=== PATIENT | male | born 1925 | race Hispanic/Latino ===

== ENCOUNTER 2017-02-28 08:59 | Emergency (ER) | payer MEDICARE ==
--- NOTE | 2017-02-28 10:04 | RAD ---
PA AND LATERAL VIEWS CHEST: HISTORY: Cough. FINDINGS/IMPRESSION: The heart size is prominent. There is evidence of old granulomatous disease. A small right pleural effusion is seen. No lobar consolidation or kylah pleural edema is identified. POS: [facility]
== END 2017-02-28 09:45 | disposition home or self-care (01) ==
LOC: NAV ERS 08:59
DX: J90 Pleural effusion, not elsewhere classified (principal); R05 Cough; E78.5 Hyperlipidemia, unspecified; I10 Essential (primary) hypertension; Z86.73 Personal history of transient ischemic attack (TIA), and cerebral infarction without residual deficits; Z87.891 Personal history of nicotine dependence; Z79.899 Other long term (current) drug therapy
CPT/HCPCS: 71020

== ENCOUNTER 2017-03-07 03:51 | Emergency (ER) | payer MEDICARE ==
[2017-03-07] MEDS ORDERED: methylPREDNISolone Sod Succ/PF 125 MG/2 ML VIAL ONE (04:36)
[2017-03-07 04:37] LABS: #Basophils 0.1 thou/uL (0.0-0.2); #Eosinphils 0.2 thou/uL (0.0-0.7); #Lymphocytes 1.8 thou/uL (1.20-3.40); #Monocytes 0.8 thou/uL (0.11-0.59); #Neutrophils 7.5 thou/uL (1.40-6.50); %Basophils 1.1 % (0.0-1.0); %Eosinophils 2.1 % (0.0-10.0); %Lymphocytes 17.4 % (21.0-51.0); %Monocytes 7.9 % (0.0-10.0); %Neutrophils 71.5 % (42.0-75.0); Hemoglobin 13.9 g/dL (14.0-18.0); Mean Corpuscular HGB CONC 30.5 g/dL (32.0-36.0); Mean Corpuscular Hemoglobin 27.3 pg (27.0-31.0); Mean Corpuscular Volume 89.6 fl (80.0-94.0); Mean Platelet Volume 7.9 fL (7.4-10.4); Platelet Count 266 thou/uL (130-400); RBC Distribution Width 12.7 % (11.5-14.5); Red Blood Cell (RBC) Count 5.07 mill/uL (4.70-6.10); White Blood Cell (WBC) Count 10.5 thou/uL (4.8-10.8)
[2017-03-07] MEDS ORDERED: Albuterol Sulfate 2.5 mg/0.5 ml Neb ONE ×2 (04:43→05:58)
[2017-03-07 04:53] LABS: ALT (SGPT) 17 U/L (8-55); AST (SGOT) 23 U/L (5-34); Albumin 3.5 g/dL (3.4-4.8); Alkaline Phosphatase 88 U/L (40-150); Anion Gap 16 mmol/L (10-20); BUN (Urea Nitrogen) 18 mg/dL (8.4-25.7); Bilirubin, Total 0.3 mg/dL (0.2-1.2); CK (CPK) 137 U/L (30-200); Calc. Creatinine Clearance 0 mL/min (70-130); Calcium 9.2 mg/dL (7.8-10.44); Carbon Dioxide 27 mmol/L (23-31); Chloride 100 mmol/L (98-107); Estimated GFR-MDRD 62; Globulin 3.9 g/dL (2.4-3.5); Glucose 109 mg/dL (83-110); Potassium 4.2 mmol/L (3.5-5.1); Protein, Total 7.4 g/dL (5.8-8.1); Sodium 139 mmol/L (136-145)
[2017-03-07 04:54] LABS: CKMB 2.2 ng/mL (0-6.6); Troponin I 0.013 ng/mL (< 0.028)
[2017-03-07 05:46] LABS: Bilirubin Negative (Negative); Blood, Urine Negative (Negative); Clarity Clear (Clear); Glucose, Urine (Dipstick) Negative (Negative); Leukocyte Negative (Negative); Nitrite Negative (Negative); Protein, Urine (Dipstick) Negative (Neg-Trace); Specific Gravity, Urine 1.015 (1.005-1.030); Urobilinogen 0.2 mg/dL (0.2-1.0)
--- NOTE | 2017-03-07 08:24 | RAD ---
FRONTAL VIEW CHEST: COMPARISON: 03/01/17. INDICATION: Cough. Difficulty breathing. FINDINGS: There is flattening of the right hemidiaphragm which indicates pleural scarring and/or a component of mild pleural fluid. There is also slight blunting of the left lateral costophrenic sulcus. Interst itial prominence of each lung is present. There is enlargement of the cardiac silhouette and promine nce of pulmonary vasculature. IMPRESSION: Findings most consistent with decompensated congestive heart failure. Probable small volume bilatera l pleural effusions. Recommend continued followup. POS: [facility]
== END 2017-03-07 06:20 | disposition home or self-care (01) ==
LOC: NAV ERS 03:51
DX: J44.9 Chronic obstructive pulmonary disease, unspecified (principal); J11.1 Influenza due to unidentified influenza virus with other respiratory manifestations; E78.5 Hyperlipidemia, unspecified; I10 Essential (primary) hypertension; Z86.73 Personal history of transient ischemic attack (TIA), and cerebral infarction without residual deficits; Z87.891 Personal history of nicotine dependence; Z79.899 Other long term (current) drug therapy
CPT/HCPCS: 36415; 71045; 80053; 81003; 82553; 83605; 83880; 84484; 85025; 87040; 96374; J2930; J7611; J7620